=== PATIENT | male | born 1985 | race Two or more races ===

== ENCOUNTER 2024-03-18 05:19 | Emergency (ER) | payer OTHER ==
[~2024-03-18] VITALS: Ht 167.6 cm; Wt 108.9 kg
[2024-03-18] MEDS ORDERED: LOSARTAN POTASS25 MG PO (06:01)
[2024-03-18] MEDS ORDERED: OZEMPIC1 MG/0.71 SQ (06:01)
[2024-03-18] MEDS ORDERED: FARXIGA10 MG PO (06:01)
[2024-03-18] MEDS ORDERED: METFORMIN HCL1000 M3 PO (06:01)
[2024-03-18] MEDS ORDERED: METOCLOPRAMIDE HCL 5 MG/ML VIAL IV STA (08:23)
[2024-03-18] MEDS ORDERED: FAMOtidine 10 MG/ML (4ML VIAL) IV STA (08:24)
[2024-03-18] MEDS ORDERED: METOCLOPRAMIDE HCL 5 MG/ML VIAL ONE (08:34)
[2024-03-18] MEDS ORDERED: FAMOTIDINE/PF 20 MG/2 ML VIAL ONE (08:35)
== END 2024-03-18 09:25 | disposition home or self-care (01) ==
LOC: ER 05:20
DX: K21.9 Gastro-esophageal reflux disease without esophagitis (principal); E11.9 Type 2 diabetes mellitus without complications; Z79.84 Long term (current) use of oral hypoglycemic drugs